=== PATIENT | male | born 1960 | race African-American/Black ===

== ENCOUNTER 2021-07-07 07:07 | Outpatient (CLI) | payer MEDICARE, MEDICAID ==
[2021-07-07 19:25] LABS: SARS-CoV-2 PCR by NAA Not Detected (NotDetected)
== END 2021-07-07 07:08 | disposition home or self-care (01) ==
LOC: LABBT 07:07
PROVIDERS: ATTEND Student in an Organized Health Care Education/Training Program
DX: Z01.818 Encounter for other preprocedural examination (principal); J34.2 Deviated nasal septum; J34.89 Other specified disorders of nose and nasal sinuses; J34.3 Hypertrophy of nasal turbinates; J30.9 Allergic rhinitis, unspecified; R09.81 Nasal congestion; R09.82 Postnasal drip; R51.9 Headache, unspecified; J35.8 Other chronic diseases of tonsils and adenoids; Z20.822 Contact with and (suspected) exposure to COVID-19
CPT/HCPCS: 93005; U0003; U0005; 93010

== ENCOUNTER 2021-07-12 10:54 | Day surgery (SDC) | payer MEDICARE, MEDICAID ==
[2021-07-11 10:23] VITALS: BMI 39.0
[2021-07-12] MEDS ORDERED: AFRIN NASAL MIST 15 ML BOT ONE (11:29)
[2021-07-12] MEDS ORDERED: Lidocaine 1% MPF 2 ML VIAL ONE (11:29)
[2021-07-12] MEDS ORDERED: EPINEPHrine 1 MG/ML AMP ONE (12:24)
[2021-07-12] MEDS ORDERED: Bacitracin Zinc Ointment 30 gm TUBE ONE (12:24)
[2021-07-12] MEDS ORDERED: Lidocaine 1% w/Epinephrine 1:100K 20 ML VIAL ONE (12:24)
[2021-07-12] MEDS ORDERED: Propofol 1,000 MG/100 ML VIAL IV ONE (12:26)
[2021-07-12] MEDS ORDERED: fentaNYL Citrate/PF 100 MCG/2 ML SYRINGE ONE ×2 (12:26→13:12)
[2021-07-12] MEDS ORDERED: Clindamycin/D5W 600 mg/50 ml Premix Bag ONE (12:47)
[2021-07-12] MEDS ORDERED: Rocuronium Bromide 10 MG/ML (10ML VIAL) ONE (12:57)
[2021-07-12] MEDS ORDERED: Lidocaine 1% PF 5 ML VIAL ONE (12:57)
[2021-07-12] MEDS ORDERED: Esmolol 100 MG/10 ML VIAL ONE (12:57)
[2021-07-12] MEDS ORDERED: Labetalol HCl 100 MG/20 ML VIAL ONE (12:57)
[2021-07-12] MEDS ORDERED: PROPOFOL 200 MG/20 ML VIAL ONE (12:57)
[2021-07-12] MEDS ORDERED: Ondansetron PF 4 MG/2 ML Vial ONE (12:57)
[2021-07-12] MEDS ORDERED: Dexamethasone 20 MG/5 ML VIAL ONE (12:57)
[2021-07-12] MEDS ORDERED: Albuterol Sulfate HFA (OR ONLY) ONE (13:03)
[2021-07-12] MEDS ORDERED: HYDROmorphone 2 MG/ML VIAL ONE (14:08)
[2021-07-12] MEDS ORDERED: Propofol 500 MG/50 ML VIAL ONE (14:08)
== END 2021-07-12 16:30 | disposition home or self-care (01) ==
LOC: SDC 10:54
PROVIDERS: ATTEND Student in an Organized Health Care Education/Training Program
PROC: 09SM0ZZ Reposition Nasal Septum, Open Approach (ICD-10-PCS; principal; 2021-07-12)
PROC: 09TL0ZZ Resection of Nasal Turbinate, Open Approach (ICD-10-PCS; 2021-07-12)
PROC: 09QK0ZZ Repair Nasal Mucosa and Soft Tissue, Open Approach (ICD-10-PCS; 2021-07-12)
DX: J34.89 Other specified disorders of nose and nasal sinuses (principal); J34.2 Deviated nasal septum; J34.3 Hypertrophy of nasal turbinates; F17.210 Nicotine dependence, cigarettes, uncomplicated; J30.9 Allergic rhinitis, unspecified; Z79.2 Long term (current) use of antibiotics; Z79.899 Other long term (current) drug therapy; Z88.0 Allergy status to penicillin
CPT/HCPCS: 30140; 30468; 30520; C1889; J0171; J1100; J1170; J2405; J2704; J3490

== ENCOUNTER 2022-02-09 07:39 | Outpatient (CLI) | payer OTHER, MEDICAID | END 2022-02-09 07:40 | disposition home or self-care (01) | LOC: CT 07:39 → MERGE 08:00 | PROVIDERS: ATTEND Student in an Organized Health Care Education/Training Program | DX: Z12.2 Encounter for screening for malignant neoplasm of respiratory organs (principal); F17.210 Nicotine dependence, cigarettes, uncomplicated | CPT/HCPCS: 71271 ==

== ENCOUNTER 2022-08-03 07:59 | Outpatient (CLI) | payer OTHER, MEDICAID | END 2022-08-03 08:00 | disposition home or self-care (01) | LOC: CT 07:59 | PROVIDERS: ATTEND Family Medicine | DX: Z12.2 Encounter for screening for malignant neoplasm of respiratory organs (principal); F17.210 Nicotine dependence, cigarettes, uncomplicated | CPT/HCPCS: 71271 ==

== ENCOUNTER 2023-10-09 07:09 | Outpatient (CLI) | payer OTHER | END 2023-10-09 07:10 | disposition home or self-care (01) | LOC: CT 07:09 | PROVIDERS: ATTEND Family Medicine | DX: Z12.2 Encounter for screening for malignant neoplasm of respiratory organs (principal); F17.210 Nicotine dependence, cigarettes, uncomplicated | CPT/HCPCS: 71271 ==